=== PATIENT | male | born 1960 | race Caucasian/White ===

== ENCOUNTER 2016-04-21 05:40 | Outpatient (CLI) | payer BC ==
[~2016-04-21] VITALS: Ht 182.9 cm; Wt 82.6 kg
[~2016-04-21 05:40] MED LIST: BACL20TA PO; DEXL60CA5 PO; DOCU100T7 PO; FA/M1TAB29 PO; FAMO-119 PO; HYDR-3454 PO; HYDR12.56 PO; LEVO100T PO; LOSA50TA6 PO; METO100T5 PO; MULT-974 PO; OMEP40CA36 PO; POTA10CA43 PO; [UNRECOGNIZED DRUG - CODE] PO
[2016-04-21] MEDS ORDERED: OMEP40CA36 PO (13:18)
[2016-04-21] MEDS ORDERED: HYDR25TA4 PO (13:18)
[2016-04-21] MEDS ORDERED: MULT-517 PO (13:18)
[2016-04-21] MEDS ORDERED: GABA-488 PO (13:18)
[2016-04-21] MEDS ORDERED: LEVO137T2 PO (13:18)
[2016-04-21] MEDS ORDERED: RANI-515 PO (13:19)
== END 2016-04-21 13:24 ==
LOC: PREOP 05:40
PROVIDERS: ATTEND Surgery
DX: Z01.818 Encounter for other preprocedural examination (principal); K21.9 Gastro-esophageal reflux disease without esophagitis

== ENCOUNTER 2016-04-25 07:33 | Day surgery (SDC) | payer BC ==
[~2016-04-25] VITALS: Ht 182.9 cm; Wt 82.6 kg
[~2016-04-25 07:33] MED LIST changes: +GABA-488 PO; +HYDR25TA4 PO; +LEVO137T2 PO; +MULT-517 PO; +RANI-515 PO
[2016-04-25] MEDS ORDERED: NALOXONE 0.4 MG/ML 1 ML (NARCAN) VIAL IVP PRN (07:45)
[2016-04-25] MEDS ORDERED: MIDAZOLAM 2 MG/2 ML (VERSED) VIAL IVP PRN (07:45)
[2016-04-25] MEDS ORDERED: HURRICAINE EXT TUBE (BENZOCAINE) XX PRN (07:45)
[2016-04-25] MEDS ORDERED: fentaNYL INJECTION 100 MCG/2 ML AMP IVP PRN (07:45)
[2016-04-25] MEDS ORDERED: FLUMAZENIL (ROMAZICON) 0.1 MG/ML 5 ML VIAL INJ PRN (07:45)
[2016-04-25] MEDS ORDERED: NS IV 500 ML 500 ML IV PRN (08:00)
[2016-04-25 08:09] VITALS: BP 145/87
--- NOTE | 2016-04-25 08:27 | Progress Note-Pre Operative ---
Pre-Operative Progress Note H&P Reviewed The H&P was reviewed, patient examined and no changes noted. Date H&P Reviewed: Apr 25, 2016 Time H&P Reviewed: 08:27 Pre-Operative Diagnosis: epigastric pain CORAL WILHELM MD Apr 25, 2016 8:27 am
[2016-04-25] MEDS ORDERED: proPOfol 200 MG/20 ML (DIPRIVAN) VIAL IV ONE (08:30)
--- NOTE | 2016-04-25 08:53 | Progress Note-Post Operative ---
Post-Operative Progess Note Pre-Operative Diagnosis epigastric pain Post-Operative Diagnosis grade 1 esophagitis. Distal gastritis. Small polyps of the gastric fundus Post-Op Procedure Note Date of Procedure: Apr 25, 2016 Name of Procedure: EGD with gastric polypectomy and antral biopsy for H. pylori Anesthesia Type sedation Specimen(s) collected gastric polyp and antral mucosa CORAL WILHELM MD Apr 25, 2016 8:53 am
--- NOTE | 2016-04-25 08:54 | Discharge Inst-Simple/Standard ---
Discharge Inst-Standard Discharge Medications New, Converted or Re-Newed RX: Other Patient Instructions/Follow Up Plan of Care/Instructions/FU: follow-up with Dr. Licona Activity as Tolerated: Yes Discharge Diet: No Restrictions CORAL WILHELM MD Apr 25, 2016 8:54 am
[2016-04-25 09:05] VITALS: BP 112/64
[2016-04-25 09:30] VITALS: BP 118/81
[2016-04-25 09:35] VITALS: BP 118/81
[2016-04-25] MEDS ORDERED: HURRICAINE EXT TUBE (BENZOCAINE) ONE (09:40)
--- NOTE | 2016-04-25 10:39 | PROCEDURE REPORT ---
PROCEDURE PHYSICIAN: CORAL WILHELM DATE OF PROCEDURE: 04/25/2016 PROCEDURE: 1. Upper GI endoscopy. 2. Excision of gastric polyp (hot biopsy). SURGEON: Nabor INDICATION FOR THE PROCEDURE: This gentleman came in for an upper endoscopy to evaluate his current symptoms of epigastric pain, nausea and vomiting. Informed consent was obtained after reviewing the procedure in detail. DESCRIPTION OF PROCEDURE: He was placed in left lateral decubitus position and his vital signs were monitored. Conscious sedation was achieved using propofol infusion by our DATA OPERATIONS MANAGER. The flexible gastroscope was introduced down the esophagus, past the stomach, into the proximal duodenum. FINDINGS: ESOPHAGUS: Grade 1 esophagitis. STOMACH: 1. Mild distal gastritis. 2. A few, small polyps about millimeter in size at the gastric fundus. One of these was excised with hot biopsy forceps. DUODENUM: Normal. He tolerated the procedure well and was taken back to the nursing area in a stable condition. IMPRESSION: 1. Epigastric pain, nausea and vomiting. 2. Esophagitis and gastritis. 3. Incidental polyps at the gastric fundus. Will treat conservatively Job ID: [id number] Dictated Date: 04/25/2016 08:52:18 Economic Forecaster Date: 04/25/2016 10:33:59 / esdras KNOWLES
== END 2016-04-25 09:35 | disposition home or self-care (01) ==
LOC: SDC 07:33
PROVIDERS: ATTEND Surgery
DX: K31.7 Polyp of stomach and duodenum (principal); K21.0 Gastro-esophageal reflux disease with esophagitis

== ENCOUNTER → 2016-09-16 | Outpatient (CLI) | payer BC ==
[~2016-09-16] MED LIST changes: +BARIUM SUSPENSION 2.1% (VANILLA SILQ) 450 ML PO ONE; +CATHETER FLUSH 10 ML SYR IV PRN; +IOHEXOL 350 MG/ML 100 ML (OMNIPAQUE 350) VIAL IV ONE; +NS 100 ML (IVPB) BAG IV ONE
--- NOTE | 2016-09-16 12:29 | Diagnostic Imaging Report ---
INDICATION: Testicular CA. Followup comparison with 01/27/2015. FINDINGS: CT OF THE NECK WITH CONTRAST: Good opacification of the cervical vessels. No cervical chain adenopathy has developed. Tissue planes are well-preserved. There is dense calcification of the left internal carotid artery with stenosis estimated upwards of 70%. Mild atherosclerotic changes noted on the right. Nasopharynx and oropharynx appear normal. No bony abnormalities. IMPRESSION: 1. Dense calcified plaquing left internal carotid artery with stenosis estimated upwards of 70%. 2. No evidence of developing cervical chain adenopathy. CT CHEST: There is good opacification of the aorta and pulmonary arteries. No mediastinal or hilar adenopathy of pathologic size is developed. The lungs are well-aerated and free of infiltrates or masses. No pleural effusions or pericardial effusion. No bony lesions. IMPRESSION: Normal CT scan of the chest with no changes to suggest metastatic disease. CT ABDOMEN AND PELVIS: The liver appears normal. Gallbladder and bile ducts are normal. Pancreas and spleen are normal. The adrenal glands are normal. Kidneys appear normal. There is normal enhancement of the abdominal organs and vessels following IV contrast. There are multiple surgical clips in the retroperitoneal region consistent with previous lymph node dissection. The stomach and small bowel are not distended. There is oral contrast present. The colon shows normal stool and gas pattern. There are diverticuli without evidence of diverticulitis. Pelvis shows no iliac chain adenopathy. Bone windows show no blastic or lytic lesion. IMPRESSION: No changes are seen to suggest metastatic disease in the abdomen or pelvis. Dictated by: Dictated on workstation # [id number]
--- NOTE | 2016-09-16 14:32 | Diagnostic Imaging Report ---
INDICATION: Testicular cancer. EXAMINATION: Whole body bone scan. TECHNIQUE: 26.5 mCi of technetium 99m MDP was given intravenously. Whole body bone scan was obtained after appropriate delay. FINDINGS: There is a triad of increased activity in the right posterior thoracic cage involving the 10th, 11th and 12th ribs. This is linear and alignment consistent with old fractures. There is a slight scoliotic curvature of the lumbar spine convex to the left with some increased activity on the concave side of the curvature consistent with stress reaction of the vertebral bodies and/or facets. There is no abnormal activity in the skeletal system that is considered suspicious for metastatic disease. IMPRESSION: Rib fractures right posterior 10th, 11th, and 12th ribs. Degenerative changes in the lumbar spine from scoliosis. Dictated by: Dictated on workstation # [id number]
== END ==
LOC: CARD 10:34
PROVIDERS: ATTEND Urology
DX: C62.92 Malignant neoplasm of left testis, unspecified whether descended or undescended (principal)
CPT/HCPCS: 70491; 71260; 74176; 78306

== ENCOUNTER → 2016-11-29 | Outpatient (CLI) | payer BC ==
[~2016-11-29] MED LIST changes: -BARIUM SUSPENSION 2.1% (VANILLA SILQ) 450 ML PO ONE; -CATHETER FLUSH 10 ML SYR IV PRN; -IOHEXOL 350 MG/ML 100 ML (OMNIPAQUE 350) VIAL IV ONE; -NS 100 ML (IVPB) BAG IV ONE
--- NOTE | 2016-11-29 13:50 | Diagnostic Imaging Report ---
PROCEDURE: US Carotid Duplex Bilateral. TECHNIQUE: Multiple real-time grayscale images were obtained over the carotid arteries in various projections bilaterally. Additional duplex Doppler and color Doppler images were also obtained. INDICATION: Carotid stenosis. FINDINGS: There are no focally elevated velocities in either internal carotid artery. The ICA/CCA ratios are within normal limits, bilaterally. There is antegrade flow in the vertebral arteries, bilaterally. Grayscale images demonstrate minimal carotid plaque, bilaterally. IMPRESSION: Minimal bilateral carotid plaque however spectral analysis shows no evidence of a hemodynamically significant stenosis in either internal carotid artery. Dictated by: Dictated on workstation # [id number]
== END ==
LOC: RAD 12:37
PROVIDERS: ATTEND Family Medicine
DX: I65.23 Occlusion and stenosis of bilateral carotid arteries (principal)
CPT/HCPCS: 93880

== ENCOUNTER 2016-12-08 12:00 | Outpatient (CLI) | payer BC ==
[~2016-12-08] VITALS: Ht 182.9 cm; Wt 82.6 kg
[2016-12-08] MEDS ORDERED: LEVO125T6 PO (12:02)
[2016-12-08] MEDS ORDERED: L GA1CAP2 PO (12:02)
[2016-12-08] MEDS ORDERED: ASPI-586 PO (12:02)
[2016-12-08] MEDS ORDERED: ATOR40TA70 PO (12:02)
== END 2016-12-08 12:13 ==
LOC: PREOP 12:00
PROVIDERS: ATTEND Surgery
DX: Z01.818 Encounter for other preprocedural examination (principal); R19.4 Change in bowel habit

== ENCOUNTER 2016-12-12 09:28 | Day surgery (SDC) | payer BC ==
[~2016-12-12] VITALS: Ht 182.9 cm; Wt 82.6 kg
[~2016-12-12 09:28] MED LIST changes: +ASPI-586 PO; +ATOR40TA70 PO; +L GA1CAP2 PO; +LEVO125T6 PO
[2016-12-12 09:37] VITALS: BP 152/88
[2016-12-12] MEDS ORDERED: NS IV 500 ML 500 ML IV PRN (09:45)
[2016-12-12] MEDS ORDERED: fentaNYL INJECTION 100 MCG/2 ML AMP IVP PRN (09:45)
[2016-12-12] MEDS ORDERED: MIDAZOLAM 2 MG/2 ML (VERSED) VIAL IVP PRN (09:45)
--- NOTE | 2016-12-12 10:25 | History & Physicial ---
History of Present Illness History of Present Illness Reason for visit/HPI This gentleman presents for a screening colonoscopy. He reports a change in bowel habits that started in August of this year. After some diarrhea, he had "floaters" in his stool. He presented to his primary care physician and has since been taking probiotics, which has helped. It has been 8 years since his last colonoscopy. His first colonoscopy was in his 40s for bleeding hemorrhoids. He has a personal history of hemorrhoids, polyps, and GERD. He has no family history of polyps or colon cancer. Date of Admission 12/12/2016 Date Seen by Provider: Dec 12, 2016 Time Seen by Provider: 10:29 I consulted on this patient on 12/12/16 10:20 Attending Physician Darian Tomlin MD Admitting Physician Elsy Licona MD Consult Allergies and Home Medications Allergies Coded Allergies: Penicillins (Unverified Allergy, Mild, 09/23/13) Erythromycin Base (Unverified Allergy, Unknown, 01/24/14) Home Medications Aspirin 81 Mg Tablet.dr, 81 MG PO DAILY, (Reported) Atorvastatin Calcium 40 Mg Tablet, 40 MG PO DAILY, (Reported) Baclofen 20 Mg Tablet, 20 MG PO TID, (Reported) Docusate Sodium 100 Mg Tablet, 300 MG PO HS, (Reported) TAKE 3 (100MG) TABS AT HS Fa/Multivits-Min/Lycopene/Lut 1 Each Tablet, 1 TAB PO DAILY, (Reported) Gabapentin 300 Mg Capsule, 300 MG PO BID, (Reported) Hydrochlorothiazide 25 Mg Tablet, 25 MG PO DAILY, (Reported) Levothyroxine Sodium 125 Mcg Tablet, 125 MCG PO DAILY, (Reported) Losartan Potassium 50 Mg Tablet, 50 MG PO HS, (Reported) Metoprolol Succinate 100 Mg Tab.sr.24h, 100 MG PO DAILY, (Reported) Omeprazole 40 Mg Capsule.dr, 40 MG PO BID, (Reported) Potassium Chloride 10 Meq Capsule.sa, 10 MEQ PO HS, (Reported) l Gasseri/B Bifidum/B Longum 1 Each Capsule, 1 EACH PO DAILY, (Reported) Past Hbzrkwf-Kcelpb-Ceejtn Hx Patient Social History Marrital Status: Employed/Student: employed Former Smoker, Quit: Apr 21, 2006 Type Used: Cigarettes Recent Foreign Travel: No Contact w/other who traveled: No Recent Hopitalizations: No Immunizations Up To Date Tetanus Booster (TDap): More than 5yrs Pediatric: Yes Date of Influenza Vaccine: Mar 03, 2016 Seasonal Allergies Seasonal Allergies: Yes Surgeries Rectal, Testicular, Thyroidectomy Cardiovascular Hypertension Reproductive System Hx Reproductive Disorders: No Gastrointestinal Gastroesophageal Reflux, Hemorrhoids, Polyps Cancer Testicular Type of Treatment: Surgical Intervention Family Medical History Family Hx: Cardiovascular disease 19 FATHER Diabetes mellitus 19 FATHER Myocardial infarction 19 FATHER No Family History of: AIDS Alcoholism Alzheimer's disease Colon cancer Completed stroke Dementia Hypertension Parkinson's disease Prostate cancer Psychosocial problem Respiratory disorder Severe allergy Thyroid disease Tuberculosis Constitutional: no symptoms reported EENTM: nose congestion (allergies) Respiratory: cough (allergies) Cardiovascular: no symptoms reported Gastrointestinal: see HPI Genitourinary: no symptoms reported Musculoskeletal: no symptoms reported Skin: no symptoms reported Psychiatric/Neurological: No Symptoms Reported All Other Systems Reviewed Negative Unless Noted: Yes Physical Exam Vital Signs Capillary Refill : General Appearance: No Apparent Distress, WD/WN Eyes: Bilateral Eye Normal Inspection, Bilateral Eye PERRL, Bilateral Eye EOMI HEENT: PERRL/EOMI, TMs Normal, Normal ENT Inspection, Pharynx Normal Neck: Full Range of Motion, Normal Inspection, Non Tender, Supple, Carotid Bruit Respiratory: Chest Non Tender, Lungs Clear, Normal Breath Sounds, No Accessory Muscle Use, No Respiratory Distress Cardiovascular: Regular Rate, Rhythm, No Edema, No Murmur Gastrointestinal: Normal Bowel Sounds, No Organomegaly, Non Tender, Soft Rectal: Deferred Back: Normal Inspection Extremity: Normal Capillary Refill, Normal Inspection, Normal Range of Motion, Non Tender, No Calf Tenderness, No Pedal Edema Neurologic/Psychiatric: Alert, Oriented x3, Normal Mood/Affect Skin: Normal Color, Warm/Dry Lymphatic: No Adenopathy Assessment/Plan Assessment and Plan This gentleman presented for screening colonoscopy for a change in bowel habits. Problems: JAZMÍN SLOAN MEDICAL STUDENT Dec 12, 2016 10:25
[2016-12-12] MEDS ORDERED: proPOfol 200 MG/20 ML (DIPRIVAN) VIAL IV ONE (10:32)
[2016-12-12] MEDS ORDERED: MIDAZOLAM 2 MG/2 ML (VERSED) VIAL ONE (10:33)
[2016-12-12] MEDS ORDERED: fentaNYL INJECTION 100 MCG/2 ML AMP ONE (10:33)
--- NOTE | 2016-12-12 10:35 | Conscious Sedation/ASA ---
Conscious Sedation Pre-Proced Time Reviewed: 10:35 ASA Class: 2 Airway Mallampati Classification: (barrow appropriate class) I. II. III, IV Lungs Heart ASA score ASA 1: a normal healthy patient ASA 2: a patient with a mild systemic disease (mid diabetes, controlled hypertension, obesity ASA 3: a patient with a severe systemic disease that limits activity (angina , COPD, prior Myocardial infarction) ASA 4: a patient with an incapacitating disease that is a constant threat to life (CHF, renal failure) ASA 5: a moribund patient not expected to survive 24 hrs. (ruptured aneurysm) ASA 6: a declared brain patient whose organs are being harvested. For emergent operations, add the letter E after the classification Grade 1 Sedation Plan: Discussed options with patient/fam Note The patient is an appropriate candidate to undergo the planned procedure, sedation, and anesthesia. The patient immediately re-assessed prior to indication. CORAL WILHELM MD Dec 12, 2016 10:35 am
--- NOTE | 2016-12-12 11:02 | Endo Procedure Record ---
Endo Procedure Report Date of Procedure Dec 12, 2016 Surgeon (s) CORAL WILHELM MD Post Procedure/Op Diagnosis very few sigmoid diverticula Procedure Performed colonoscopy to cecum Description of Procedure Anesthesia Type: Conscious Sedation Specimen(s) collected/removed none Description of the Procedure Indication for procedure: This gentleman came in for colonoscopy to evaluate a recent change in his bowel habits. In addition, he reported a personal history of polyps more than 8 years ago. Informed consent was obtained after reviewing the procedure in detail. Description of procedure: He was placed in left lateral decubitus position and his vital signs were monitored. Conscious sedation was achieved using propofol infusion by our PRECISION AGRICULTURE SPECIALIST. Digital rectal examination was unremarkable. The colonoscope was then introduced in the rectum and advanced all the way up to the cecum. The quality of bowel preparation was excellent. The scope was then withdrawn slowly and the mucosa examined in a systematic fashion. Findings: 1. Mild degree of internal hemorrhoids 2. Very few sigmoid diverticula. He tolerated the procedure well and was taken back to the nursing area in a stable condition Impression: Change in bowel habits. Very few sigmoid diverticula. No polyps. Recommend repeating in 10 years. Copies To: EMMA SHERIDAN MD, XAVIER M MD Dec 12, 2016 11:01 am
--- NOTE | 2016-12-12 11:03 | Discharge Inst-Simple/Standard ---
Discharge Inst-Standard Discharge Medications New, Converted or Re-Newed RX: Other Patient Instructions/Follow Up Plan of Care/Instructions/FU: high fiber diet. Follow up with his primary Activity as Tolerated: Yes Discharge Diet: No Restrictions CORAL WILHELM MD Dec 12, 2016 11:03 am
[2016-12-12 11:10] VITALS: BP 146/79
[2016-12-12 11:40] VITALS: BP 106/70
[2016-12-12 12:05] VITALS: BP 122/75
[2016-12-12 12:08] VITALS: BP 122/75
== END 2016-12-12 12:08 | disposition home or self-care (01) ==
LOC: ENDO 09:28
PROVIDERS: ATTEND Surgery
DX: K57.30 Diverticulosis of large intestine without perforation or abscess without bleeding (principal); R19.4 Change in bowel habit; K64.8 Other hemorrhoids; I10 Essential (primary) hypertension; E78.5 Hyperlipidemia, unspecified; E03.9 Hypothyroidism, unspecified; K21.9 Gastro-esophageal reflux disease without esophagitis

== ENCOUNTER → 2017-09-18 | Outpatient (CLI) | payer BC ==
[~2017-09-18] MED LIST changes: +BARIUM SUSPENSION 2.1% (VANILLA SILQ) 450 ML PO ONE; +IOHEXOL 350 MG/ML 100 ML (OMNIPAQUE 350) VIAL IV ONE; +NS 250 ML (IVPB) BAG IV ONE
[2017-09-18] MEDS: CATHETER FLUSH 10 ML SYR IV PRN ×2 (12:16→12:30)
--- NOTE | 2017-09-18 14:05 | Diagnostic Imaging Report ---
INDICATION: Left testicular carcinoma. Please give technique for CT neck, chest, abdomen and pelvis with contrast. Comparison is made with prior CT from 09/16/2016. CT NECK: The visualized intracranial structures are unremarkable. Posterior nasopharynx, oropharynx and larynx are unremarkable. Thyroid gland appears to be surgically absent. Multiple surgical clips in the region of thyroid bed. Submandibular and parotid glands are symmetric bilaterally. No cervical lymphadenopathy is seen. No fluid collection is identified. IMPRESSION: Stable CT of the neck since 09/16/2016. No cervical lymphadenopathy is detected. CT CHEST: Normal size lymph nodes in the axilla bilaterally are noted. No pathologically enlarged mediastinal or hilar lymph nodes are visualized. No pericardial or pleural fluid is detected. No pulmonary masses are identified. There are no infiltrates. IMPRESSION: Stable CT of the chest. No thoracic lymphadenopathy or evidence of pulmonary metastatic disease is identified. CT ABDOMEN AND PELVIS: No discrete liver mass is identified. The gallbladder is unremarkable. The pancreas and spleen are unremarkable. No adrenal mass is detected. The kidneys are unremarkable. Aorta is non-aneurysmal. There are multiple surgical clips from retroperitoneal lymph node dissection. No central or retroperitoneal lymphadenopathy is seen. There is no mesenteric lymphadenopathy. Small and large bowel loops are normal caliber. There is no ascites. No definite inguinal or iliac lymphadenopathy is seen. The bladder is decompressed. IMPRESSION: Stable CT of the abdomen and pelvis since 09/16/2016. No abdominal or pelvic lymphadenopathy or evidence of metastatic disease is identified. Dictated by: Dictated on workstation # [id number]
--- NOTE | 2017-09-18 15:45 | Diagnostic Imaging Report ---
INDICATION: Testicular carcinoma. TECHNIQUE: The patient was administered 25.7 mCi of technetium 99m MDP intravenously and whole-body imaging was performed after a three-hour delay. COMPARISON: Comparison is made with prior whole body bone scan from 09/16/2016. FINDINGS: There is normal uptake of activity by the axial and appendicular skeleton. There is uptake by both kidneys with excretion into the urinary bladder. No abnormal foci of tracer accumulation is seen to suggest osseous metastatic disease. Mild degenerative changes in the left knee are noted. IMPRESSION: No scintigraphic evidence of osseous metastatic disease. Dictated by: Dictated on workstation # [id number]
== END ==
LOC: CARD 11:55
PROVIDERS: ATTEND Urology
DX: C62.92 Malignant neoplasm of left testis, unspecified whether descended or undescended (principal)
CPT/HCPCS: 70491; 71260; 74176; 78306

== ENCOUNTER → 2017-12-25 | Outpatient (CLI) | payer BC ==
[~2017-12-25] MED LIST changes: -BARIUM SUSPENSION 2.1% (VANILLA SILQ) 450 ML PO ONE; -IOHEXOL 350 MG/ML 100 ML (OMNIPAQUE 350) VIAL IV ONE; -NS 250 ML (IVPB) BAG IV ONE
--- NOTE | 2017-12-25 16:46 | Diagnostic Imaging Report ---
CLINICAL INDICATION: Patient with mid to lower back pain for the past month. Patient has degenerative disc disease and left lumbar pain and right hip pain radiating down into the leg. EXAM: X-ray of the lumbar spine, three views. COMPARISON: None. FINDINGS: There is mild levoscoliosis of the lumbar spine. There are moderately hypertrophic spurs seen throughout the lumbar spine. There is straightening of the upper lumbar spine posture. There is lower lumbar facet arthropathy. There is multilevel loss of intervertebral disc height, which is severe at the L1-L2 and L2-L3 and moderate at the L3-L4 and L5-S1 levels. Surgical clips are seen overlying the anterior abdominal region. Sacroiliac joint show no significant abnormality. Likely old healed fracture changes involving the right T12 rib. IMPRESSION: There is [id number] multilevel lumbar spine degenerative disease with levoscoliosis. Dictated by: Dictated on workstation # [id number]
== END ==
LOC: RAD 15:52
PROVIDERS: ATTEND Nurse Practitioner Family
DX: M47.26 Other spondylosis with radiculopathy, lumbar region (principal); M51.16 Intervertebral disc disorders with radiculopathy, lumbar region; M41.86 Other forms of scoliosis, lumbar region
CPT/HCPCS: 72100

== ENCOUNTER → 2022-07-05 | Outpatient (CLI) | payer BC ==
[~2022-07-05] MED LIST changes: +OMEP40CA6 PO; -RANI-515 PO; +RANI-609 PO
[2022-07-05 10:46] VITALS: BP 150/90
== END ==
LOC: CARD 10:00
PROVIDERS: ATTEND Nurse Practitioner Family
DX: I11.9 Hypertensive heart disease without heart failure (principal); I08.0 Rheumatic disorders of both mitral and aortic valves
CPT/HCPCS: C8929; C8930; 93306